=== PATIENT | male | born 1975 | race Caucasian/White ===

== ENCOUNTER 2019-03-19 20:33 | Observation (INO) | payer OTHER ==
--- NOTE | 2019-03-19 20:52 | RAD ---
XR Chest 1 View Portable History: Trauma Comparison: CT examination same day Findings: Multiple poorly visualized right-sided rib fractures. No pneumothorax. No significant effus ion. Heart size is upper limits of normal. Impression: Multiple nondisplaced right-sided rib fractures without underlying pneumothorax or hemoth orax appreciated.
[2019-03-19] MEDS ORDERED: Morphine 4 MG/ML VIAL ONE (21:05)
[2019-03-19] MEDS ORDERED: Ketorolac Tromethamine 30 MG/ML VIAL ONE (21:05)
[2019-03-19] MEDS ORDERED: Ondansetron ODT 4 MG TAB PO PRN (23:55)
[2019-03-19] MEDS ORDERED: hydrALAZINE 20 MG/ML VIAL SLOW IVP PRN (23:55)
[2019-03-19] MEDS ORDERED: traMADol HCl 50 MG TAB PO PRN (23:55)
[2019-03-19] MEDS ORDERED: Dextrose 5% in Water 1,000 ML IV PRN (23:55)
[2019-03-19] MEDS ORDERED: Ondansetron PF 4 MG/2 ML Vial IVP PRN (23:55)
[2019-03-19] MEDS ORDERED: Cyclobenzaprine 10 MG TAB PO PRN (23:55)
[2019-03-19] MEDS ORDERED: Dextrose 50% Abboject 50 ML SYRINGE SLOW IVP PRN (23:55)
[2019-03-20] MEDS ORDERED: traMADol HCl 50 MG TAB PO SCH (00:15)
[2019-03-20] MEDS ORDERED: Sodium Chloride 0.9% 1,000 ML IV SCH (00:15)
[2019-03-20] MEDS ORDERED: Gabapentin 300 MG CAP PO SCH ×2 (00:30→09:00)
[2019-03-20] MEDS: Acetaminophen 500 MG TAB PO SCH ×3 (00:54→12:30)
--- NOTE | 2019-03-20 01:38 | HP ---
This is Tomy Altman PA-C dictating a report for Fredis Leslie MD. REQUESTING PHYSICIAN: Dr. Harvey. HISTORY OF PRESENT ILLNESS: The patient is a 43-year-old man who was working with approximately 1700-pound bull that pinned him up against a fence post. The patient was knocked to the ground and was able to get back up under his own power, finished his work and then went home, had 3 beers and the pain became too much for him, so he went to the emergency department in [place] where he underwent evaluation and examination and was noted to have rib fractures and a tiny pneumothorax on the right side. The patient was discharged home, but the family was not comfortable with that, so they drove themselves to our facility here in [place], where he was re-examined and it was felt that he should be admitted for pain control and monitoring of the pneumothorax overnight. The patient denied loss of consciousness and his only other pain was some shoulder pain. ALLERGIES: NONE. MEDICATIONS: Metoprolol. PAST MEDICAL HISTORY: Tachycardia, anxiety, and hypertension. PAST SURGICAL HISTORY: Dental surgery. SOCIAL HISTORY: The patient drinks 5 or 6 beers per day. Denies drug or tobacco use. He lives at home with family. REVIEW OF SYSTEMS: 10-point review of systems is negative as otherwise stated. PHYSICAL EXAMINATION: VITAL SIGNS: Blood pressure 126/88, heart rate 124, respirations 24, oxygen saturation 95% on 2 L via nasal cannula, temperature is 99.5. GENERAL: The patient is resting comfortably in bed. He is awake, alert, and oriented x3. [place] Coma Scale is 15. HEENT: Head is normocephalic, atraumatic. Eyes, extraocular motions intact. PERRLA bilaterally. Ears are atraumatic without discharge. Nose is atraumatic without discharge. Oropharynx is clear. NECK: Nontender. Trachea is midline. No JVD. CHEST: Clear to auscultation with good inspiratory and expiratory effort. Respirations, the patient has strong cough and tenderness to palpation to the right chest wall. BACK: Atraumatic and nontender. HEART: Regular rate and rhythm. ABDOMEN: Soft, flat, nontender with active bowel sounds. PELVIS: Stable. EXTREMITIES: Neurovascularly intact x4. LABORATORY FINDINGS: White blood cell count 21.2, hemoglobin 15.7, hematocrit 48.8, platelets 364. Sodium 137, potassium 3.8, chloride 102, CO2 of 21, BUN 9, creatinine 0.93, glucose 119. LFTs are unremarkable. RADIOGRAPHIC FINDINGS: CT of the chest, abdomen, and pelvis with IV contrast shows multiple rib fractures on the right including ribs 3 through 7 anterolaterally and ribs 8 and 9 posteriorly. There are minimal amounts of air loculated beneath some of the rib fractures, but no major pneumothorax is seen. Remainder of the exam is unremarkable. AP chest x-ray shows multiple nondisplaced right-sided rib fractures without underlying pneumothorax or hemothorax is appreciated. ASSESSMENT AND PLAN: 1. Status post crush by a bull. 2. Right ribs 3 through 7 anterolateral and ribs 8 and 9 posterior fractures. 3. Shoulder contusion. 4. Acute pain due to trauma. 5. History of tachycardia and hypertension. PLAN: Will be to admit the patient to the surgical floor for pain control, pulmonary toilet, gastritis, mechanical VTE prophylaxis. The patient has not had his evening dose of metoprolol, we will give him that. Repeat chest x-ray in the morning to ensure that the pneumothorax has not progressed and likely be able to discharge the patient within the next 24 hours. The evaluation, examination, laboratory, and radiographic findings were discussed with Dr. Leslie prior to this dictation. Job ID: [id number]
[2019-03-20 04:53] VITALS: BMI 47.2
[2019-03-20 05:34] LABS: #Basophils 0.1 thou/uL (0.0-0.2); #Lymphocytes 1.9 thou/uL (1.20-3.40); #Monocytes 0.5 thou/uL (0.11-0.59); #Neutrophils 8.4 thou/uL (1.40-6.50); %Basophils 0.7 % (0.0-1.0); %Eosinophils 0.3 % (0.0-10.0); Hemoglobin 14.1 g/dL (14.0-18.0); Mean Corpuscular HGB CONC 31.1 g/dL (32.0-36.0); Mean Corpuscular Hemoglobin 31.3 pg (27.0-31.0); Mean Platelet Volume 8.9 fL (7.4-10.4); Platelet Count 306 thou/uL (130-400); RBC Distribution Width 11.8 % (11.5-14.5); Red Blood Cell (RBC) Count 4.49 mill/uL (4.70-6.10); White Blood Cell (WBC) Count 10.9 thou/uL (4.8-10.8)
[2019-03-20] MEDS: traMADol HCl 50 MG TAB PO SCH ×2 (05:34→12:31)
[2019-03-20 05:57] LABS: Anion Gap 11 mmol/L (10-20); BUN (Urea Nitrogen) 10 mg/dL (8.9-20.6); Calc. Creatinine Clearance 267 mL/min (70-130); Calcium 8.9 mg/dL (7.8-10.44); Carbon Dioxide 25 mmol/L (22-29); Chloride 104 mmol/L (98-107); Estimated GFR-MDRD Greater than 90; Glucose 113 mg/dL (70-105); Potassium 4.1 mmol/L (3.5-5.1); Sodium 136 mmol/L (136-145)
[2019-03-20] MEDS ORDERED: Ibuprofen 800 MG TAB PO SCH (06:00)
[2019-03-20 06:41] LABS: Phosphorus 4.6 mg/dL (2.3-4.7)
--- NOTE | 2019-03-20 08:19 | RAD ---
SINGLE VIEW OF THE CHEST: COMPARISON: 03/19/2019. HISTORY: Right pneumothorax. FINDINGS: A single view of the chest shows a cardiomediastinal silhouette which is upper limits of normal in si ze. There is no evidence of consolidation, mass, pneumothorax, or pleural effusion. The rib fractur es seen on CT are difficult to visualize on this chest x-ray. IMPRESSION: No evidence of acute cardiopulmonary disease. POS: CET
[2019-03-20] MEDS ORDERED: Famotidine 20 MG TAB PO SCH (09:00)
[2019-03-20 13:12] VITALS: BP 130/93; TEMP 97.4
[2019-03-20] MEDS ORDERED: Enoxaparin Sodium 40 MG/0.4 ML SYRINGE SC SCH (21:00)
--- NOTE | 2019-03-21 02:14 | DIS ---
DATE OF ADMISSION: 03/19/2019 DATE OF DISCHARGE: 03/20/2019 ADMISSION DIAGNOSES: 1. Status post crushed by a bull. 2. Right rib, 3 through 9 fracture. 3. Right shoulder contusion. 4. History of hypertension. DISCHARGE DIAGNOSES: 1. Status post crush injury by a bull. 2. Right rib 3 through 9 fracture, conservative treatment. 3. History of hypertension. CONSULTING PHYSICIAN: None. PROCEDURE: None. HOSPITAL COURSE: Mr. Hylton is a 43-year-old male status post crushed by a bull in which he was stuck between the bull and fence. He sustained right rib fracture 3 through 9. The patient admitted to telemetry for pain control and pulmonary toilet. Overnight, the patient is doing good. Pain is well controlled. He is able to walk around the floor. His spirometry is 1500. He developed no fever or shortness of breath. PHYSICAL EXAMINATION: GENERAL: The patient is lying in bed comfortable with no acute respiratory distress. VITAL SIGNS: Temperature 98.3, heart rate is 81, respiratory rate 16, O2 saturation 92 on room air, blood pressure 119/74. The patient is alert and awake. GCS 15. The patient . LUNGS: Clear bilaterally. HEART: Regular rate and rhythm. ABDOMEN: Soft, nondistended. EXTREMITIES: Neurovascularly intact x4. NEUROLOGICAL: No focal neurologic deficits. DISCHARGE DISPOSITION: Home. DISCHARGE CONDITION: Good. DISCHARGE INSTRUCTIONS: The patient is to take medication as directed. The patient is to use spirometry throughout the day. The patient is encouraged walking and activity as tolerated. Encourage not to heavy lifting more than 20 pounds in 2 weeks. The patient will see Dr. Raygoza on 04/02 at 2 p.m. with chest x-ray. DISCHARGE MEDICATIONS: 1. Tramadol. 2. Tylenol. 3. Ibuprofen. 4. Gabapentin. 5. Resume all home medication. Job ID: [id number]
== END 2019-03-20 13:26 | disposition home or self-care (01) ==
LOC: ERS 20:33 → SURG A 21:11
PROVIDERS: ADMIT Specialist; ATTEND Specialist
DX: S22.41XA Multiple fractures of ribs, right side, initial encounter for closed fracture (principal); S40.011A Contusion of right shoulder, initial encounter; G89.11 Acute pain due to trauma; I10 Essential (primary) hypertension; Z79.899 Other long term (current) drug therapy; W55.22XA Struck by cow, initial encounter; Y99.0 Civilian activity done for income or pay
CPT/HCPCS: 36415; 71045; 80048; 83735; 84100; 85025; 94640; 94760; 96361; 96374; 96375; G0378; J1885; J2270; J7620

== ENCOUNTER 2019-03-25 12:08 | Outpatient (CLI) | payer OTHER ==
--- NOTE | 2019-03-25 12:44 | RAD ---
XR Chest Pa Lat STANDARD HISTORY: Rib fractures, chest pain COMPARISON: 07/03/2019 FINDINGS: The heart size is at upper limits of normal. There is a small right pleural effusion. No pn eumothorax is seen. The right-sided rib fractures noted on the CT scan of 06/03/2019 are not satisfactorily visualized on the current exam.
== END 2019-03-25 12:09 | disposition home or self-care (01) ==
LOC: BICRAD 12:08
PROVIDERS: ATTEND Physician Assistant
DX: S22.41XD Multiple fractures of ribs, right side, subsequent encounter for fracture with routine healing (principal)
CPT/HCPCS: 71046

== ENCOUNTER 2019-04-02 11:37 | Outpatient (CLI) | payer OTHER ==
--- NOTE | 2019-04-02 13:48 | RAD ---
EXAM: CHEST TWO VIEWS: 04/02/19 HISTORY: Rib fracture, follow-up, trauma. COMPARISON: 03/25/2019. FINDINGS: Small residual right pleural effusion but showing definite improvement from the prior study. Border[place] sized heart. Stable left chest. IMPRESSION: Improved pleural and minimal parenchymal opacity changes in the right base and costophrenic angle reg ion when compared to the prior study. No new process. POS: HEAVEN
== END 2019-04-02 11:38 | disposition home or self-care (01) ==
LOC: BICRAD 11:37
PROVIDERS: ATTEND Physician Assistant
DX: S22.39XD Fracture of one rib, unspecified side, subsequent encounter for fracture with routine healing (principal)
CPT/HCPCS: 71046

== ENCOUNTER 2022-08-23 07:26 | Outpatient (CLI) | payer BC ==
[2022-08-23] MEDS ORDERED: Iopamidol 370 76% 100 ML VIAL ONE (09:01)
== END 2022-08-23 07:27 | disposition home or self-care (01) ==
LOC: BICCT 07:26
PROVIDERS: ATTEND Physician Assistant Medical
DX: Z12.11 Encounter for screening for malignant neoplasm of colon (principal); K85.90 Acute pancreatitis without necrosis or infection, unspecified
CPT/HCPCS: 74170; Q9967